=== PATIENT | female | born 1970 | race American Indian/Alaskan Native ===

== ENCOUNTER 2020-03-30 07:24 | Observation (INO) | payer MEDICAID, MEDICARE ==
--- NOTE | 2020-03-30 08:31 | Emergency Department Report ---
ED General Adult HPI - General Chief complaint: Medical Clearance Stated complaint: GRAPH STOP WORKING PUI?: No Time Seen by Provider: 03/30/20 08:00 Source: patient, RN notes reviewed Mode of arrival: Ambulatory Limitations: No Limitations - History of Present Illness Initial comments: The patient was evaluated in the emergency department for symptoms described in the history of present illness. He/she was evaluated in the context of the global COVID-19 pandemic, which necessitated consideration that the patient might be at risk for infection with the virus that causes COVID-19. Institutional protocols and algorithms that pertain to the evaluation of patients at risk for COVID-19 are in a state of rapid change based on information released by regulatory bodies including the CDC and federal and state organizations. These policies and algorithms were followed during the patient's care in the emergency department. Please note that these policies, procedures and recommendations changed on a rapid basis. The patient is a pleasant 49-year-old female. She is not known to myself previously. She has a history of end-stage renal disease, left upper extremity graft, placed approximately 18 months ago in [facility], and typically gets hemodialysis Thursday, Thursday, Thursday. She is visiting from [place]. She is going to [facility] locally, where she reports that her covering tractor trailer operator is a Dr. English The patient states that this past Thursday, 2 days ago, she received hemodialysis, but felt that they were having difficulty with flow in her graft. Today, she comes to the ER with a complaint of painless sensation of graft not working, and general medical clearance. She denies headache, neck pain, chest pain, abdominal pain, shortness of breath, loss of taste, loss of smell. She reports that she is not . -: Sudden Improves with: none Worsens with: none Associated Symptoms: denies other symptoms - Related Data Allergies Allergy/AdvReac Type Severity Reaction Status Date / Time spironolactone Allergy Unknown Verified 03/30/20 07:27 [From Aldactone] ED Review of Systems ROS: Stated complaint: GRAPH STOP WORKING Other details as noted in HPI Comment: All other systems reviewed and negative ED Past Medical Hx - Past Medical History Previous Medical History?: Yes Hx Hypertension: Yes Hx Diabetes: Yes Hx Renal Disease: Yes Additional medical history: HIGH CHOLESTROL - Surgical History Additional Surgical History: SHUNT IN ARM/ C SECTION - Social History Smoking Status: Never Smoker Substance Use Type: None ED Physical Exam - General Limitations: No Limitations General appearance: alert, in no apparent distress, obese - Head Head exam: Present: atraumatic, normocephalic - Eye Eye exam: Present: normal appearance, EOMI. Absent: nystagmus - ENT ENT exam: Present: normal exam, normal orophraynx, mucous membranes moist, normal external ear exam - Neck Neck exam: Present: normal inspection, full ROM. Absent: tenderness, men ingismus - Respiratory Respiratory exam: Present: normal lung sounds bilaterally. Absent: respiratory distress - Cardiovascular Cardiovascular Exam: Present: regular rate, normal rhythm, normal heart sounds. Absent: bradycardia, tachycardia, irregular rhythm, systolic murmur, diastolic murmur, rubs, gallop - GI/Abdominal GI/Abdominal exam: Present: soft. Absent: distended, tenderness, guarding, rebound, rigid, pulsatile mass - Extremities Exam Extremities exam: Present: normal inspection, full ROM, other (2+ pulses noted in the bilateral upper extremities. There is a left upper extremity graft noted, without thrill or appreciable bruit.). Absent: calf tenderness - Back Exam Back exam: Present: normal inspection, full ROM. Absent: tenderness, CVA tenderness (R), CVA tenderness (L), paraspinal tenderness, vertebral tenderness - Neurological Exam Neurological exam: Present: alert, oriented X3, other (No facial droop. Tongue midline. Extraocular movements intact bilaterally. Facial sensation intact to light touch in V1, V2, V3 distribution bilaterally. 5 and a 5 strength in 4 extremities. Sensation intact to light touch in 4 extremities.) - Psychiatric Psychiatric exam: Present: normal affect, normal mood - Skin Skin exam: Present: warm, dry, intact, normal color. Absent: rash ED Course Vital Signs 03/30/20 07:28 Temperature 98.2 F Pulse Rate 97 H Respiratory 18 Rate Blood Pressure 151/88 O2 Sat by Pulse 96 Oximetry - Reevaluation(s) Reevaluation #1: 03/30/20 08:30 Differential diagnosis, including but not limited to: Graft malfunction, end- stage renal disease, electrolyte derangement Assessment and plan: 49-year-old female, [id number], resenting with poorly functioning or malfunctioning left upper extremity graft, and request for medical clearance. Obtain appropriate laboratory studies, left upper extremity hemodialysis access study, anticipate discussion with both vascular surgery and nephrology on-call. Do not clinically suspect Covid at this time. Have discussed this plan of care with the patient, who verbalized understanding, and who is amenable to this plan of care. Reevaluation #2: 03/30/20 09:41 Multiple phone calls made to vascular lab, technologist has not answered, no one has answered. This was escalated to the housekeeping manager, and also to the area director, Martínezapril Lehman. He tells me at this time that he expects that "tech should be here any minute." Reevaluation #3: 03/30/20 10:32 Verbal report from ep technologist indicates that graft is totally occluded. The vascular surgeon, Dr. Emmanuel Hollis on-call, is in the operating r oom now. I have made 2 calls at this time to discuss the patient's care with him. We have communicated to the OR staff that we would like to speak to him expediently. I have also contacted our tractor trailer operator on-call, Dr. Arvind Rojas, Discussed the patient's history, physical, pertinent laboratory studies and radiology studies. He will follow in consultation. 03/30/20 11:01 Discussed history, physical, pertinent laboratory studies and imaging studies with vascular surgeon, Dr. Emmanuel Hollis. His group will follow and management. Patient made nothing by mouth. Hospital physician, Dr. Rosina Duggan to admit ED Medical Decision Making - Lab Data Result diagrams: 03/30/20 08:18 03/30/20 08:18 Vital Signs 03/30/20 07:28 Temperature 98.2 F Pulse Rate 97 H Respiratory 18 Rate Blood Pressure 151/88 O2 Sat by Pulse 96 Oximetry Lab Results 03/30/20 03/30/20 03/30/20 Range/Units 08:18 08:18 08:18 WBC 12.0 H (4.5-11.0) K/mm3 RBC 3.89 (3.65-5.03) M/mm3 Hgb 11.7 (10.1-14.3) gm/dl Hct 36.1 (30.3-42.9) % MCV 93 (79-97) fl MCH 30 (28-32) pg MCHC 32 (30-34) % RDW 16.1 H (13.2-15.2) % Plt Count 313 (140-440) K/mm3 PT 13.5 (12.2-14.9) Sec. INR 1.04 (0.87-1.13) Sodium 137 (137-145) mmol/L Potassium 4.6 (3.6-5.0) mmol/L Chloride 96.7 L (98-107) mmol/L Carbon Dioxide 25 (22-30) mmol/L Anion Gap 20 mmol/L BUN 39 H (7-17) mg/dL Creatinine 8.8 H (0.6-1.2) mg/dL Estimated GFR 5 ml/min BUN/Creatinine Ratio 4 % Glucose 191 H (65-100) mg/dL Calcium 9.2 (8.4-10.2) mg/dL Magnesium 2.10 (1.7-2.3) mg/dL Total Creatine Kinase 29 L (30-135) units/L - Radiology Data Radiology results: report reviewed, image reviewed Print Report Referring Physician: MYCHAL GARZON Patient Name: WILLIAMS PERALTA Date of : 1970 Sex: Female Report Date: 2020-03-30 Report Status: Finalized Findings [facility] [address] [place] [address] Vascular Lab Report Signed Patient: WILLIAMS PERALTA MR#: [id number] : 1970 Acct:[id number] Age/Sex: 49 / F ADM Date: 03/30/20 Loc: ED Attending Dr: Ordering Physician: MYCHAL GARZON MD Date of Service: 03/30/20 Procedure(s): VL hemodialysis access Accession Number(s): [id number] cc: MYCHAL GARZON MD ULTRASOUND EVALUATION OF LEFT ARM GRAFT INDICATION: Left arm graft not working. History of ESRD. COMPARISON: None available. FINDINGS: Proximal to the graft, the left brachial artery is patent with expected color flow and waveforms with a peak systolic velocity of 50 cm/s. The graft is occluded at the proximal and distal anastomoses. The left subclavian vein is patent. IMPRESSION: Occluded left upper extremity AV graft. Signer Name: Judson Iglesias MD Signed: 03/30/2020 10:46 AM Workstation Name: [id number] Transcribed By: [place] Dictated By: Judson Iglesias MD Electronically Authenticated By: Judson Iglesias MD Signed Date/Time: 03/30/20 104 DD/ 43 TD/TT: Critical care attestation.: If time is entered above; I have spent that time in minutes in the direct care of this critically ill patient, excluding procedure time. ED Disposition Clinical Impression: ESRD (end stage renal disease) Clotted renal dialysis arteriovenous graft Qualifiers: Encounter type: initial encounter Qualified Code(s): T82.868A - Thrombosis due to vascular prosthetic devices, implants and grafts, initial encounter Disposition: 09 OP ADMIT IP TO THIS HOSP Is pt being admited?: Yes Does the pt Need Aspirin: No Condition: Good Referrals: PRIMARY CARE, [Primary Care Provider] - 3-5 Days
[2020-03-30 08:45] LABS: Hematocrit 36.1 % (30.3-42.9); Hemoglobin 11.7 gm/dl (10.1-14.3); Mean Corpuscular HGB Conc 32 % (30-34); Mean Corpuscular Volume 93 fl (79-97); Platelet Count 313 K/mm3 (140-440); Red Blood Count 3.89 M/mm3 (3.65-5.03); Red Cell Distribution Width 16.1 % (13.2-15.2)
[2020-03-30 08:46] LABS: INR 1.04 (0.87-1.13)
[2020-03-30 08:58] LABS: Calcium 9.2 mg/dL (8.4-10.2)
--- NOTE | 2020-03-30 10:50 | Vascular Lab Report ---
ULTRASOUND EVALUATION OF LEFT ARM GRAFT INDICATION: Left arm graft not working. History of ESRD. COMPARISON: None available. FINDINGS: Proximal to the graft, the left brachial artery is patent with expected color flow and waveforms with a peak systolic velocity of 50 cm/s. The graft is occluded at the proximal and distal anastomoses. T he left subclavian vein is patent. IMPRESSION: Occluded left upper extremity AV graft. Signer Name: Judson Iglesias MD Signed: 03/30/2020 10:46 AM Workstation Name: [id number]
--- NOTE | 2020-03-30 10:52 | Consultation ---
History of Present Illness - Reason for Consult Consult date: 03/30/20 end stage renal disease - History of Present Illness The patient is a 49 year old female with ESRD on HD secondary to DM and HTN, last tx was Thursday, she presented to the ER today for malfunctioned AVG, the last 2 treatment according to her were done with some issues. here she denies SOB, chest pain or fever. renal consult was requested for HD management Past History Past Medical History: diabetes, ESRD, hypertension Medications and Allergies Allergies Allergy/AdvReac Type Severity Reaction Status Date / Time spironolactone Allergy Unknown Verified 03/30/20 07:27 [From Aldactone] Review of Systems All systems: negative (malfunctioned dialysis access) Exam - Vital Signs Vital signs: Vital Signs Temp Pulse Resp BP Pulse Ox 98.2 F 97 H 18 151/88 96 03/30/20 07:28 03/30/20 07:28 03/30/20 07:28 03/30/20 07:28 03/30/20 07:28 - General Appearance General appearance: well-developed, well-nourished, obese EENT: ATNC, PERRL, mucous membranes moist Neck: Present: neck supple Respiratory: Clear to Ascultation Heart: regular, S1S2 Gastrointestinal: Present: normoactive bowel sounds. Absent: tenderness, distended Integumentary: no rash, warm and dry Neurologic: no focal deficit, no asterixis, alert and oriented x3 Musculoskeletal: Present: other (no edema in BLE) Psychiatric: mood/affect appropriate, cooperative Results - Lab Results 03/30/20 08:18 03/30/20 08:18 Most recent lab results Calcium 9.2 mg/dL (8.4-10.2) 03/30/20 08:18 Magnesium 2.10 mg/dL (1.7-2.3) 03/30/20 08:18 Assessment and Plan ESRD on HD malfunctioned dialysis access Type II diabetes HTN vascular surgery consult requested by ER HD today for clearance and volume removal post declotting will assess dialysis needs daily renally dose meds strict I&O daily weight Jamir Rojas MD [phone]
--- NOTE | 2020-03-30 11:48 | History and Physical Report ---
History of Present Illness History of present illness: This is a 49-year-old female with hypertension, diabetes mellitus, end-stage renal disease on HD MWF,and hypercholesterolemia who presented to the emergency department with a malfunctioning AV graft. She noticed at home that her AV graft did not have a thrill. Patient denies any chest pain, shortness of breath, cough, hemoptysis, fever, chills, nausea, vomiting, diarrhea, loss of sense of taste or smell, recent weight loss or excessive fatigue. Patient denies any sick contacts or known exposure to COVID-19 and states she had a negative COVID-19 PCR 6 days ago. Workup in the emergency department revealed an elevated creatinine of 8.8 and BUN of 39, hyperglycemia, leukocytosis and ultrasound of her AV graft showed an occluded left upper extremity AV graft. Vascular surgery and nephrology were consulted in the ED. Advance care planning conducted in the ED, no prior visits to review and home medications not available for reconciliation. Past History Past Medical History: diabetes, ESRD, hypertension Past Surgical History: , tonsillectomy Social history: , lives with family, full code. denies: smoking, alcohol abuse, prescription drug abuse, IV drug use Family history: hypertension Medications and Allergies Allergies Allergy/AdvReac Type Severity Reaction Status Date / Time spironolactone Allergy Unknown Verified 03/30/20 07:27 [From Aldactone] Active Meds: Active Medications Acetaminophen (Tylenol) 650 mg PO Q4H PRN PRN Reason: Pain MILD(1-3)/Fever >100.5/LONGO Dextrose (D50w (25gm) Syringe) 50 ml IV Q30MIN PRN; Protocol PRN Reason: Hypoglycemia Heparin Sodium (Porcine) (Heparin) 5,000 unit SUB-Q Q8HR CATHY Ondansetron HCl (Zofran) 4 mg IV Q8H PRN PRN Reason: Nausea And Vomiting Oxycodone/Acetaminophen (Percocet 5/325) 1 tab PO Q6H PRN PRN Reason: Pain, Moderate (4-6) Sodium Chloride (Sodium Chloride Flush Syringe 10 Ml) 10 ml IV BID CATHY Sodium Chloride (Sodium Chloride Flush Syringe 10 Ml) 10 ml IV PRN PRN PRN Reason: LINE FLUSH Review of Systems Constitutional: no weight loss, no weight gain, no fever, no chills, no sweats, no night sweats, no anorexia, no fatigue, no weakness, no malaise, no lethargy Ears, nose, mouth and throat: no ear pain, no ear discharge, no tinnitis, no decreased hearing, no nose pain, no nasal congestion, no nasal discharge, no sinus pressure, no sinus pain, no bleeding gums, no dental pain, no mouth pain, no dysphagia, no hoarseness, no sore throat Cardiovascular: high blood pressure, leg edema, no chest pain, no orthopnea, no palpitations, no rapid/irregular heart beat, no edema, no syncope Respiratory: no cough, no cough with sputum, no excessive sputum, no hemoptysis, no shortness of breath, no dyspnea on exertion Gastrointestinal: no nausea, no vomiting, no diarrhea, no constipation, no change in bowel habits, no hematemesis, no coffee ground emesis, no melena, no hematochezia, no heartburn Genitourinary Female: no pelvic pain, no flank pain, no dysuria, no urinary frequency, no urgency, no nocturia Musculoskeletal: no neck stiffness, no neck pain, no shooting arm pain, no arm numbness/tingling, no low back pain, no shooting leg pain, no leg numbness/tingling, no frequent falls, no fractures Neurological: no head injury, no transient paralysis, no paralysis, no weakness, no parathesias, no numbness, no tingling, no seizures, no syncope, no tremors, no headaches, no convulsions, no confusion, no changes in smell/taste, no sensory deficit Psychiatric: no anxiety, no memory loss, no sleep disturbances, no insomnia, no hypersomnia, no disorientation Endocrine: no cold intolerance, no heat intolerance, no polyphagia, no polydipsia, no polyuria, no nocturia, no high blood sugars Hematologic/Lymphatic: no easy bruising, no easy bleeding Allergic/Immunologic: no allergic rhinitis, no wheezing, no persistent infections Exam - Constitutional Vitals: Temp Pulse Resp BP Pulse Ox 98.2 F 97 H 18 151/88 96 03/30/20 07:28 03/30/20 07:28 03/30/20 07:28 03/30/20 07:28 03/30/20 07:28 General appearance: Present: no acute distress - EENT Eyes: Present: PERRL, EOM intact ENT: hearing intact, clear oral mucosa - Neck Neck: Present: normal ROM - Respiratory Respiratory effort: normal Respiratory: bilateral: CTA - Cardiovascular Rhythm: regular Heart Sounds: Present: S1 & S2. Absent: systolic murmur, diastolic murmur - Extremities Extremities: no ischemia, pulses intact, pulses symmetrical, No edema, normal temperature, normal color, Full ROM - Abdominal General gastrointestinal: Present: soft, non-tender, normal bowel sounds - Integumentary Integumentary: Present: clear, warm, dry - Musculoskeletal Musculoskeletal: strength equal bilaterally - Psychiatric Psychiatric: appropriate mood/affect, cooperative - Neurologic Neurologic: CNII-XII intact, no focal deficits, moves all extremities - Allied Health Allied health notes reviewed: nursing Results - Labs CBC & Chem 7: 03/30/20 08:18 03/30/20 08:18 Labs: Laboratory Last Values WBC 12.0 K/mm3 (4.5-11.0) H 03/30/20 08:18 RBC 3.89 M/mm3 (3.65-5.03) 03/30/20 08:18 Hgb 11.7 gm/dl (10.1-14.3) 03/30/20 08:18 Hct 36.1 % (30.3-42.9) 03/30/20 08:18 MCV 93 fl (79-97) 03/30/20 08:18 MCH 30 pg (28-32) 03/30/20 08:18 MCHC 32 % (30-34) 03/30/20 08:18 RDW 16.1 % (13.2-15.2) H 03/30/20 08:18 Plt Count 313 K/mm3 (140-440) 03/30/20 08:18 PT 13.5 Sec. (12.2-14.9) 03/30/20 08:18 INR 1.04 (0.87-1.13) 03/30/20 08:18 Sodium 137 mmol/L (137-145) 03/30/20 08:18 Potassium 4.6 mmol/L (3.6-5.0) 03/30/20 08:18 Chloride 96.7 mmol/L (98-107) L 03/30/20 08:18 Carbon Dioxide 25 mmol/L (22-30) 03/30/20 08:18 Anion Gap 20 mmol/L 03/30/20 08:18 BUN 39 mg/dL (7-17) H 03/30/20 08:18 Creatinine 8.8 mg/dL (0.6-1.2) H 03/30/20 08:18 Estimated GFR 5 ml/min 03/30/20 08:18 BUN/Creatinine Ratio 4 % 03/30/20 08:18 Glucose 191 mg/dL (65-100) H 03/30/20 08:18 Calcium 9.2 mg/dL (8.4-10.2) 03/30/20 08:18 Magnesium 2.10 mg/dL (1.7-2.3) 03/30/20 08:18 Total Creatine Kinase 29 units/L (30-135) L 03/30/20 08:18 - Diagnostic Impressions Diagnostic Impressions: 03/30 HD access duplex ultrasound showed occluded left upper extremity AV graft. Assessment and Plan VTE prophylaxis?: Chemical, Mechanical Plan of care discussed with patient/family: Yes - Patient Problems (1) Clotted renal dialysis arteriovenous graft Current Visit: Yes Status: Acute Qualifiers: Encounter type: initial encounter Qualified Code(s): T82.868A - Thrombosis due to vascular prosthetic devices, implants and grafts, initial encounter Plan to address problem: -Presented to ED because the patient did not feel a thrill on her AV graft. -03/30 HD access ultrasound shows occluded left upper extremity AV graft. -Vascular surgery consulted -Scheduled to go to the OR for thrombectomy (2) Leukocytosis Current Visit: Yes Status: Acute Plan to address problem: -Presented with slight leukocytosis of 12 -Possibly reactive to HD or clotted AVG -Trend CBC -Monitor for symptoms of infection (3) ESRD (end stage renal disease) Current Visit: Yes Status: Chronic Plan to address problem: -On HD MWF -Last received HD on Wednesday 03/28 -Nephrology consulted -HD per renal team -Patient is visiting from [place] and is receiving temporary dialysis in [place] at [facility] -Daily weights -Strict I&O -Avoid nephrotoxic medications -Renally dose all medications -03/30 Hepatitis panel negative (4) HTN (hypertension) Current Visit: Yes Status: Chronic Plan to address problem: -Restart home antihtn regimen once obtained -BP monitoring per protocol -PRN hydralazine for SBP >160 (5) Diabetes mellitus Current Visit: Yes Status: Chronic Qualifiers: Diabetes mellitus type: type 2 Diabetes mellitus complication detail: with chronic kidney disease Chronic kidney disease stage: on chronic dialysis Plan to address problem: -Hold home antidiabetic regimen while inpatient -/ Hbg AIC 7.9 -SSI -Accucheck q 6 hours while NPO then switch to ACHS -CC diet (6) High cholesterol Current Visit: Yes Status: Chronic Plan to address problem: -Continue home regimen when able (7) DVT prophylaxis Current Visit: Yes Status: Acute Plan to address problem: -Heparin subq after surgical intervention -SCDs to BLE while in bed (8) Full code status Current Visit: Yes Status: Acute (9) Hypochloremia Current Visit: Yes Status: Acute Plan to address problem: - Presenting with Chloride 93.7 -Trend BMP -Electorate correction with HD
[2020-03-30] MEDS ORDERED: ACETAMINOPHEN 325 MG TAB PO PRN (12:00)
[2020-03-30] MEDS ORDERED: ONDANSETRON 4 MG/2 ML INJ IV PRN (12:00)
[2020-03-30] MEDS ORDERED: oxyCODONE /ACETAMINOPHEN 5-325MG TAB PO PRN (12:00)
[2020-03-30] MEDS ORDERED: DEXTROSE 50% IN WATER (25GM) 50 ML SYRINGE IV PRN (12:00)
[2020-03-30] MEDS ORDERED: SODIUM CHLORIDE 0.9% 500 ML 500 ML ONE (12:08)
[2020-03-30] MEDS ORDERED: HEPARIN/NS 5000 UNIT/500ML 1,000 ML IR ONE (12:08)
[2020-03-30 12:42] LABS: Hepatitis B Surface Antigen Non-Reactive (Negative); Hepatitis C Virus Antibody Non-Reactive (NonReactive)
[2020-03-30] MEDS: MIDAZOLAM 2 MG/2 ML INJ ONE ×3 (12:52→13:16)
[2020-03-30] MEDS: fentaNYL 100 MCG/2 ML INJ ONE ×3 (12:52→13:16)
[2020-03-30] MEDS: LIDOCAINE (2%) 20 MG/1 ML VIAL 20 ML MDV INFILTRATI ONE ×2 (12:53→13:01)
[2020-03-30] MEDS: HEPARIN 10,000 UNITS/10 ML VIAL ONE ×2 (13:05→13:47)
[2020-03-30] MEDS ORDERED: MIDAZOLAM 2 MG/2 ML INJ ONE (13:26)
[2020-03-30] MEDS ORDERED: fentaNYL 100 MCG/2 ML INJ ONE (13:27)
[2020-03-30] MEDS ORDERED: HEPARIN 5,000 UNIT/1 ML VIAL SUB-Q SCH (14:00)
--- NOTE | 2020-03-30 14:43 | Consultation ---
History of Present Illness - Reason for Consult Consult date: 03/30/20 Thrombosed Left Arm AV Graft Requesting physician: MYCHAL GARZON - History of Present Illness The patient is a 49-year-old female with history of end-stage renal disease who is currently on hemodialysis through left arm arteriovenous graft. She has been on dialysis for approximately a year and a half however she had creation of an arteriovenous fistula approximately 3 years ago. She states the fistula was created approximately a year prior to her initiating dialysis however the fistula was never able to be cannulated. She is unsure what complications occurred with the fistula but it required revision with an interposition graft. She has been using the graft without significant complications. She typically undergoes dialysis in [place] where she resides however she is in town visiting family and underwent dialysis Thursday where she states they had some difficulty cannulating the graft but she did undergo full treatment. She states when she woke up this morning she was unable to feel a pulse or thrill in the graft. She denies ever having previous thrombosis of the graft. She denies any hand numbness or pain. She denies hypotension during dialysis. She has no additional complaints at this time. Past History Past Medical History: diabetes, ESRD, hypertension Past Surgical History: , tonsillectomy Social history: , lives with family, full code. denies: smoking, alcohol abuse, prescription drug abuse, IV drug use Family history: hypertension Medications and Allergies Allergies Allergy/AdvReac Type Severity Reaction Status Date / Time spironolactone Allergy Unknown Verified 03/30/20 07:27 [From Aldactone] Active Meds: Active Medications Acetaminophen (Tylenol) 650 mg PO Q4H PRN PRN Reason: Pain MILD(1-3)/Fever >100.5/LONGO Dextrose (D50w (25gm) Syringe) 50 ml IV Q30MIN PRN; Protocol PRN Reason: Hypoglycemia Heparin Sodium (Porcine) (Heparin) 5,000 unit SUB-Q Q8HR CATHY Insulin Human Regular (Humulin R) 0 unit SUB-Q Q6H CATHY; Protocol Ondansetron HCl (Zofran) 4 mg IV Q8H PRN PRN Reason: Nausea And Vomiting Oxycodone/Acetaminophen (Percocet 5/325) 1 tab PO Q6H PRN PRN Reason: Pain, Moderate (4-6) Sodium Chloride (Sodium Chloride Flush Syringe 10 Ml) 10 ml IV BID CATHY Sodium Chloride (Sodium Chloride Flush Syringe 10 Ml) 10 ml IV PRN PRN PRN Reason: LINE FLUSH Review of Systems All systems: negative Exam - Constitutional Vitals: Temp Pulse Resp BP Pulse Ox 98.2 F 97 H 18 151/88 96 03/30/20 07:28 03/30/20 07:28 03/30/20 07:28 03/30/20 07:28 03/30/20 07:28 General appearance: Present: no acute distress - Neck Neck: Present: supple - Respiratory Respiratory effort: normal - Cardiovascular Rhythm: regular - Extremities Extremities: no ischemia, pulses intact (Palpable left radial pulse), abnormal (Left arm arteriovenous graft without pulse or thrill, there is no pseudoaneurysm formation appreciated or ulceration over the graft.) - Abdominal General gastrointestinal: Present: soft Female genitourinary: Present: deferred - Rectal Rectal Exam: deferred Results - Labs CBC & Chem 7: 03/30/20 08:18 03/30/20 08:18 Labs: Abnormal lab results 03/30/20 03/30/20 03/30/20 Range/Units 08:18 08:18 11:41 WBC 12.0 H (4.5-11.0) K/mm3 RDW 16.1 H (13.2-15.2) % Chloride 96.7 L (98-107) mmol/L BUN 39 H (7-17) mg/dL Creatinine 8.8 H (0.6-1.2) mg/dL Glucose 191 H (65-100) mg/dL Hemoglobin A1c 7.9 H (4-6) % Total Creatine Kinase 29 L (30-135) units/L Assessment and Plan The patient is a 49-year-old female with a history of end-stage renal disease who has a thrombosed left arm AV graft. She is in need of a diagnostic fistu logram with possible intervention. She was given the risk, benefits, and alternative procedures and consented to the procedure.
--- NOTE | 2020-03-30 14:58 | Operative Report ---
Operative Report Operative Report: Date of Procedure: 03/30/2020 Pre-operative Diagnosis: Complications of Dialysis Access Post-operative Diagnosis: Same Procedure(s): 1. Access Left Arm AV Graft With 7 Maldivian Sheath Venous 2. Access Left Arm AV Graft with 6 Maldivian Sheath Arterial 3. Diagnostic Fistulogram with Central Venogram 4. Percutaneous Mechanical Thrombectomy of Left Arm AV Graft With Trertolla Device 5. Angioplasty and Stent of Left Arm AV Graft with 8 x 80 [place] Balloon, 8 x 40 Conquest Balloon, and 8 x 10 cm Viabahn Stent Graft 6. Catheter in Left Brachial Artery 7. Diagnostic Left Lower Extremity Arteriogram 8. Radiologic Supervision with Interpretation 9. Monitored Moderate Sedation (Total Anesthesia Time: 90 Minutes) Surgeon: Emmanuel Hollis M.D. Stove Tender: Sarah Beth Anesthesia: Local/Monitored Moderate Sedation Total Anesthesia Time: 90 Minutes EBL: Minimal Counts: Correct Complications: None Condition: Stable Specimen: None Indication: The patient is a 49-year-old female with a history of end-stage renal disease who presented to the emergency department with a thrombosed left arm AV graft. She is in need of a diagnostic fistulogram with possible intervention. She was given the risk, benefits, and alternative procedures and consented to the procedure. Angiographic Findings: The diagnostic fistulogram revealed thrombus throughout the graft. There was stenosis throughout the graft ranging from 75 to 85%. The diagnostic fistulogram also revealed that this was a hybrid access with the access been a brachiocephalic fistula with an interposition graft. There was 50 to 80% stenosis of the cephalic arch. The central venous system was patent without evidence of flow-limiting stenosis. There was approximately 90% stenosis of the arterial inflow at the anastomosis. 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 The left upper extremity angiogram revealed that the brachial artery was patent without any evidence of flow-limiting stenosis. The anastomosis was created at the radial artery. The radial artery demonstrated no evidence of flow-limiting stenosis both proximal and distal to the anastomosis. There was no evidence of distal emboli. After intervention the arterial inflow was patent with less than 10% residual stenosis. There was no residual thrombus appreciated. The stent graft placed across the arterial inflow had no evidence of endoleak. There was less than 20% residual stenosis within the body of the graft. There was no residual thrombus appreciated throughout the remainder of the graft. Description of Procedure: The patient was brought to the [facility] and laid in supine position. After a timeout was performed her left arm was prepped and draped in normal sterile fashion. Lidocaine was used to anesthetize the skin and soft tissue overlying the graft near the arterial inflow and a 21-gauge micropuncture needle was used to access the graft towards the venous outflow. A 0.018 micropuncture wire was advanced into the graft and after removing the needle a 7 Maldivian sheath was placed by Seldinger technique. A vertebral catheter and Bentson wire was advanced to the graft and a diagnostic fistulogram with central venogram performed with the previous graft findings. I systemically heparinized the patient with 5000 units of heparin IV. I performed angioplasty of the areas of stenosis within the graft in the cephalic arch with an 8 x 80 [place] balloon That which resulted in approximately 40% residual stenosis throughout the graft and less than 10% residual stenosis within the cephalic arch. I then used the Trertolla Device to morcellate the thrombus and then used a 6 Maldivian multipurpose catheter to aspirate thrombus throughout the graft. This resulted in minimal residual thrombus throughout the graft. I used an 8 x 40 Conquest Balloon to perform additional angioplasty of the areas of stenosis resulted in less than 20% residual stenosis. I then anesthetized the skin and overlying soft tissue of the graft near the venous outflow using 21-gauge micropuncture needle to access the graft towards the arterial inflow. I advanced the 0.018 micropuncture wire into the graft and after removing the needle advanced a 6 Maldivian sheath into the graft by Seldinger technique. I then used the vertebral catheter and Bentson wire to cannulate the proximal brachial artery and performed a diagnostic arteriogram with the previously described findings. I initially used a 6 x 40 [place] Balloon to perform angioplasty of the arterial anastomosis as well as the remainder of the arterial inflow. At this point it became evident that there was aneurysmal dilatation of the arterial inflow with a significant amount of thrombus burden. I used the Trertolla Device to morcellate the thrombus and used the 6 Maldivian multipurpose catheter to aspirate a significant amount of thrombus however there was still a significant amount of thrombus burden. The more thrombus I aspirated there more became apparent that the arterial inflow was significantly dilated compared to the outflow of the graft. I suspected that this contributed to the thrombosis of the graft secondary to the flow dynamics. I decided to cover this area with a stent graft as there was approximately 2 cm of adequate neck at the arterial anastomosis. I exchanged a 6 Maldivian sheath for a 7 Maldivian sheath and then advanced the vertebral catheter into the brachial artery and exchanged the Zapposson wire for a 0.018 V18 wire. I then performed an angiogram and used this as a roadmap for placement of an 8 x 10 cm Viabahn Stent Graft. After advancing the stent graft into position and deploying it, I removed the 7 Maldivian venous sheath, and post dilated the stenotic areas using the 8 x 40 Conquest Balloon. I readvanced the vertebral catheter into the brachial artery and performed a final angiogram which revealed no evidence of endoleak or thrombus in the distal brachial artery. There was brisk flow of contrast throughout the graft and palpation of the graft revealed a robust thrill. At this point I removed all balloons and wires and used a 2-0 Ethilon, in slipknot fashion, to close the entry site of the arterial sheath. A sterile dressing was then applied to the entry site and the patient was transported to the dialysis unit in stable condition.
[2020-03-30] MEDS: INSULIN REGULAR, HUMAN 100 UNIT/ML 3ML VIAL SUB-Q SCH ×2 (17:28→18:00)
[2020-03-30 18:35] VITALS: BP 146/76
--- NOTE | 2020-04-10 20:09 | Discharge Summary ---
Providers - Providers Date of Admission: 03/30/20 11:39 Date of discharge: 03/30/20 Attending physician: ERNA GREEN 03/30/20 10:27 Consult to Physician [CONS] Urgent Comment: Consulting Provider: BORIS NAIDU Physician Instructions: Reason For Exam: ESRD non functioning graft Consult to Physician [CONS] Urgent Comment: Consulting Provider: ADAMARIS ROY Physician Instructions: Reason For Exam: esrd Primary care physician: NETEZZA DEVELOPER Hospitalization Condition: Good Disposition: [id number] LEFT AGAINST MED ADVICE Time spent for discharge: 32 min Core Measure Documentation - Palliative Care Palliative Care/ Comfort Measures: Not Applicable - Core Measures Any of the following diagnoses?: none Exam - Constitutional Vitals: Temp Pulse Resp BP Pulse Ox 98.2 F 89 18 146/76 99 03/30/20 18:33 03/30/20 18:33 03/30/20 18:33 03/30/20 18:33 03/30/20 18:31 Plan Additional Instructions: Patient left AMA Follow up with: PRIMARY MD RAGHU [Primary Care Provider] - 3-5 Days Forms: AMA Form
== END 2020-03-30 20:00 | disposition left against medical advice (07) ==
LOC: ED 07:24 → 3A 11:39
PROVIDERS: ADMIT Internal Medicine; ATTEND Internal Medicine
DX: T82.868A Thrombosis due to vascular prosthetic devices, implants and grafts, initial encounter (principal); I12.0 Hypertensive chronic kidney disease with stage 5 chronic kidney disease or end stage renal disease; E11.22 Type 2 diabetes mellitus with diabetic chronic kidney disease; N18.6 End stage renal disease; D72.829 Elevated white blood cell count, unspecified; E78.00 Pure hypercholesterolemia, unspecified; E87.8 Other disorders of electrolyte and fluid balance, not elsewhere classified; Z79.899 Other long term (current) drug therapy; Z88.8 Allergy status to other drugs, medicaments and biological substances; X58.XXXA Exposure to other specified factors, initial encounter; Y93.89 Activity, other specified; Y92.89 Other specified places as the place of occurrence of the external cause
CPT/HCPCS: 36415; 36906; 80048; 80074; 82550; 83036; 83735; 85027; 85610; 93990; 99284; C1725; C1769; C1874; C1887; C1894; G0257; G0378; J1644; J2250; J3010; J7040; Q9967